=== PATIENT | male | born 1995 | race Caucasian/White ===

== ENCOUNTER 2019-10-18 06:00 | Emergency (ER) | payer OTHER ==
[~2019-10-18] VITALS: Ht 190.5 cm; Wt 90.7 kg
== END 2019-10-18 09:09 | disposition home or self-care (01) ==
LOC: ER 06:00
DX: S16.1XXA Strain of muscle, fascia and tendon at neck level, initial encounter (principal); S46.911A Strain of unspecified muscle, fascia and tendon at shoulder and upper arm level, right arm, initial encounter; F17.200 Nicotine dependence, unspecified, uncomplicated; V59.9XXA Occupant (driver) (passenger) of pick-up truck or van injured in unspecified traffic accident, initial encounter
CPT/HCPCS: 30020; 72040; 73030; 99284-25; A9270; A9270-GY